=== PATIENT | female | born 1995 | race Caucasian/White ===

== ENCOUNTER 2024-07-10 19:25 | Emergency (ER) | payer OTHER ==
[~2024-07-10] VITALS: Ht 167.6 cm; Wt 86.2 kg
[2024-07-10 19:28] VITALS: PULSE 88; RESP 20; TEMP 98.1
[2024-07-10] MEDS ORDERED: ACETAMINOPHEN 325 MG TAB PO ONE (19:45)
[2024-07-10] MEDS ORDERED: SODIUM CHLORIDE 0.9% 1000ML 1,000 ML IV ONE (20:00)
[2024-07-10 20:05] VITALS: BP 115/71; PULSE 88; RESP 20; TEMP 98.1; O2SAT 99
== END 2024-07-10 19:58 | disposition left against medical advice (07) ==
LOC: FSED 19:30
DX: R10.2 Pelvic and perineal pain (principal)
CPT/HCPCS: 76801; J7030